=== PATIENT | female | born 1990 | race Caucasian/White ===

== ENCOUNTER 2023-02-26 06:20 | Inpatient (IN) | payer BC ==
[2023-02-26 08:21] VITALS: BMI 35.7
[2023-02-26 09:18] LABS: BASO % 0.3 % (0-2.0); EOS % 1.8 % (0-4.5); HEMATOCRIT 33.4 % (32.4-45.2); HEMOGLOBIN 10.9 GM/dL (10.7-15.3); LYMPH % 16.1 % (8-40); MCH 27.5 pg (25.7-33.7); MCHC 32.7 g/dl (32.0-36.0); MEAN PLT VOLUME 7.9 fl (7.5-11.1); MONO % 5.2 % (3.8-10.2); NEUT % 76.6 % (42.8-82.8); PLATELET COUNT 332 10^3/uL (134-434); RBC 3.97 M/mm3 (3.60-5.2); RDW 15.8 % (11.6-15.6); WHITE BLOOD COUNT 10.3 K/mm3 (4.0-10.0)
[2023-02-26 09:24] LABS: INR 0.94 (0.83-1.09); PROTHROMBIN TIME (PATIENT) 10.9 SEC (9.7-13.0)
[2023-02-26 09:26] LABS: ACTIVATED PTT 27.7 SECONDS (25.2-36.5)
[2023-02-26 09:34] LABS: POTASSIUM 4.3 mmol/L (3.5-5.1)
[2023-02-26 09:35] LABS: CALCIUM 8.9 mg/dL (8.5-10.1)
[2023-02-26 09:36] LABS: BLOOD UREA NITROGEN 9.7 mg/dL (7-18)
[2023-02-26 09:39] LABS: CREATININE 0.6 mg/dL (0.55-1.3)
[2023-02-26] MEDS ORDERED: FENTANYL CITRATE/PF 50 MCG/ML VIAL ONE (10:09)
[2023-02-26] MEDS ORDERED: morphine SULFATE/PF 1 MG/2 ML (2cc Syringe - QUVA) ONE (10:09)
[2023-02-26 11:17] LABS: HIV INTERPRETATION NEGATIVE (NEGATIVE)
[2023-02-26 12:07] LABS: INR 0.99 (0.83-1.09); PROTHROMBIN TIME (PATIENT) 11.5 SEC (9.7-13.0)
[2023-02-26 12:12] LABS: BASO % 0.4 % (0-2.0); EOS % 1.2 % (0-4.5); HEMATOCRIT 27.8 % (32.4-45.2); HEMOGLOBIN 9.4 GM/dL (10.7-15.3); LYMPH % 16.8 % (8-40); MCH 27.9 pg (25.7-33.7); MCHC 33.9 g/dl (32.0-36.0); MEAN CELL VOLUME 82.2 fl (80-96); MEAN PLT VOLUME 7.9 fl (7.5-11.1); MONO % 5.7 % (3.8-10.2); NEUT % 75.9 % (42.8-82.8); PLATELET COUNT 299 10^3/uL (134-434); RBC 3.39 M/mm3 (3.60-5.2); RDW 15.9 % (11.6-15.6); WHITE BLOOD COUNT 9.2 K/mm3 (4.0-10.0)
[2023-02-26] MEDS ORDERED: ACETAMINOPHEN 1000 MG/100 ML BAG IVPB PRN (12:41)
[2023-02-26] MEDS ORDERED: oxyCODONE HCL 5 MG TABLET PO PRN (12:41)
[2023-02-26] MEDS ORDERED: ONDANSETRON 4 MG/2 ML VIAL IVPB PRN (12:41)
[2023-02-26] MEDS ORDERED: IBUPROFEN 800 MG/8 ML IJ IVPB PRN (12:41)
[2023-02-26] MEDS ORDERED: OXYTOCIN 20 UNITS in 0.9% NS 20 UNIT/1,000 ML INFUS.BAG IV ONE (12:45)
[2023-02-26] MEDS ORDERED: OXYTOCIN 20 UNITS in 0.9% NS 20 UNIT/1,000 ML INFUS.BAG IV SCH (12:45)
[2023-02-26] MEDS ORDERED: morphine SULFATE/PF 1 MG/2 ML (2cc Syringe - QUVA) SPIN ONE (12:57)
[2023-02-26] MEDS ORDERED: ACETAMINOPHEN 1000 MG/100 ML BAG IVPB ONE (12:58)
[2023-02-26] MEDS: CEFAZOLIN SODIUM 2 GM in DEXTROSE 5%-WATER 100 ML IVPB SCH (18:30)
[2023-02-26] MEDS: SENNOSIDES/DOCUSATE COMBO (SENNA PLUS) TABLET (UD) PO SCH (23:46)
[2023-02-27] MEDS ORDERED: CEFAZOLIN SODIUM 2 GM VIAL ONE (01:16)
[2023-02-27] MEDS: SIMETHICONE 80 MG TAB.CHEW (FP) PO PRN ×3 (01:40→20:08)
[2023-02-27] MEDS: CEFAZOLIN SODIUM 2 GM in DEXTROSE 5%-WATER 100 ML IVPB SCH ×3 (01:41→17:10)
[2023-02-27] MEDS: IBUPROFEN 600 MG TABLET (FP) PO PRN ×3 (02:35→22:34)
[2023-02-27 06:52] LABS: BASO % 0.3 % (0-2.0); EOS % 0.3 % (0-4.5); HEMATOCRIT 23.7 % (32.4-45.2); HEMOGLOBIN 7.8 GM/dL (10.7-15.3); LYMPH % 16.7 % (8-40); MCH 27.6 pg (25.7-33.7); MCHC 32.7 g/dl (32.0-36.0); MEAN CELL VOLUME 84.6 fl (80-96); MONO % 7.4 % (3.8-10.2); NEUT % 75.3 % (42.8-82.8); PLATELET COUNT 261 10^3/uL (134-434); RBC 2.81 M/mm3 (3.60-5.2); WHITE BLOOD COUNT 10.7 K/mm3 (4.0-10.0)
[2023-02-27] MEDS: FERROUS SO4 325 MG TABLET (FP) PO SCH (09:19)
[2023-02-27] MEDS ORDERED: BISACODYL 10 MG SUPP.RECT RC PRN (12:41)
[2023-02-27] MEDS: ACETAMINOPHEN 325 MG TABLET (FP) PO PRN ×2 (12:51→20:08)
[2023-02-27] MEDS: SENNOSIDES/DOCUSATE COMBO (SENNA PLUS) TABLET (UD) PO SCH (22:25)
[2023-02-28] MEDS: ACETAMINOPHEN 325 MG TABLET (FP) PO PRN ×2 (02:32→09:07)
[2023-02-28] MEDS: SIMETHICONE 80 MG TAB.CHEW (FP) PO PRN ×3 (06:20→21:33)
[2023-02-28] MEDS: IBUPROFEN 600 MG TABLET (FP) PO PRN ×4 (06:20→21:34)
[2023-02-28 08:34] LABS: BASO % 0.4 % (0-2.0); EOS % 1.9 % (0-4.5); HEMATOCRIT 22.7 % (32.4-45.2); HEMOGLOBIN 7.3 GM/dL (10.7-15.3); LYMPH % 19.1 % (8-40); MCH 27.5 pg (25.7-33.7); MCHC 32.3 g/dl (32.0-36.0); MEAN PLT VOLUME 7.2 fl (7.5-11.1); MONO % 6.5 % (3.8-10.2); NEUT % 72.1 % (42.8-82.8); PLATELET COUNT 295 10^3/uL (134-434); RBC 2.67 M/mm3 (3.60-5.2); RDW 15.9 % (11.6-15.6)
[2023-02-28] MEDS: FERROUS SO4 325 MG TABLET (FP) PO SCH (09:07)
[2023-02-28] MEDS: SENNOSIDES/DOCUSATE COMBO (SENNA PLUS) TABLET (UD) PO SCH (21:34)
[2023-03-01] MEDS: IBUPROFEN 600 MG TABLET (FP) PO PRN ×4 (06:03→21:16)
[2023-03-01] MEDS: SIMETHICONE 80 MG TAB.CHEW (FP) PO PRN ×2 (06:03→11:11)
[2023-03-01] MEDS: FERROUS SO4 325 MG TABLET (FP) PO SCH (10:17)
[2023-03-01] MEDS: SENNOSIDES/DOCUSATE COMBO (SENNA PLUS) TABLET (UD) PO SCH (21:16)
[2023-03-01 21:18] VITALS: RESP 18
[2023-03-02] MEDS: SIMETHICONE 80 MG TAB.CHEW (FP) PO PRN (05:51)
[2023-03-02] MEDS: IBUPROFEN 600 MG TABLET (FP) PO PRN (05:51)
[2023-03-02 09:14] VITALS: BP 104/62; PULSE 94; TEMP 98.6
[2023-03-02] MEDS: FERROUS SO4 325 MG TABLET (FP) PO SCH (09:40)
== END 2023-03-02 13:48 | disposition home or self-care (01) | DRG 788 ==
LOC: JLDR 06:20 → J3W 13:40
PROVIDERS: ADMIT Specialist; ATTEND Specialist
PROC: 10D00Z1 Extraction of Products of Conception, Low, Open Approach (ICD-10-PCS; principal; 2023-02-26)
PROC: 0UB90ZZ Excision of Uterus, Open Approach (ICD-10-PCS; 2023-02-26)
DX: O32.2XX0 Maternal care for transverse and oblique lie, not applicable or unspecified (principal); O34.13 Maternal care for benign tumor of corpus uteri, third trimester; Z3A.38 38 weeks gestation of pregnancy; Z37.0 Single live birth
CPT/HCPCS: 36415; 36430; 80048; 85025; 85384; 85610; 85730; 86780; 86922; 87389; 88305-TC; 88307-TC; 94010